=== PATIENT | male | born 1960 | race African-American/Black ===

== ENCOUNTER 2017-05-08 14:26 | Emergency (ER) | payer BC ==
[2017-05-08 15:30] LABS: #Eosinphils 0.3 thou/uL (0.0-0.7); #Lymphocytes 1.5 thou/uL (1.20-3.40); #Monocytes 0.4 thou/uL (0.11-0.59); #Neutrophils 1.1 thou/uL (1.40-6.50); %Basophils 1.1 % (0.0-1.0); %Eosinophils 9.2 % (0.0-10.0); %Lymphocytes 45.6 % (21.0-51.0); %Monocytes 12.2 % (0.0-10.0); Hematocrit 35.5 % (42.0-52.0); Mean Platelet Volume 5.5 fL (7.4-10.4); Red Blood Cell (RBC) Count 3.89 mill/uL (4.70-6.10); White Blood Cell (WBC) Count 3.3 thou/uL (4.8-10.8)
[2017-05-08 15:40] LABS: Anion Gap 11 mmol/L (10-20); BUN (Urea Nitrogen) 16 mg/dL (8.4-25.7); Calc. Creatinine Clearance 0 mL/min (70-130); Calcium 8.7 mg/dL (7.8-10.44); Carbon Dioxide 28 mmol/L (22-29); Chloride 109 mmol/L (98-107); Estimated GFR-MDRD Greater than 90
--- NOTE | 2017-05-08 15:49 | ULT ---
LEFT LOWER EXTREMITY VENOUS ULTRASOUND: COMPARISON: 06/02/16. HISTORY: Left leg edema and pain. TECHNIQUE: Multiplanar, moya scale, and color Doppler images were obtained in a left lower extremity venous ult rasound. Spectral analysis of the Doppler waveforms was performed. FINDINGS: The left common femoral vein, profunda femoral vein, superficial femoral vein, and popliteal vein ar e normal in appearance without visible thrombus. These vessels demonstrate normal compression, flow , and augmentation. The left posterior tibial vein and greater saphenous vein are also patent. IMPRESSION: No evidence of left lower extremity deep vein thrombosis. POS: [facility]
== END 2017-05-08 15:46 | disposition home or self-care (01) ==
LOC: SCSER 14:26
DX: M79.662 Pain in left lower leg (principal); I82.402 Acute embolism and thrombosis of unspecified deep veins of left lower extremity; Z79.01 Long term (current) use of anticoagulants; Z79.899 Other long term (current) drug therapy
CPT/HCPCS: 36415; 80048; 85025

== ENCOUNTER 2017-07-14 09:22 | Inpatient (IN) | payer BC ==
--- NOTE | 2017-07-14 09:47 | RAD ---
LEFT TIBIA AND FIBULA 2 VIEWS: Date: 07/14/17 HISTORY: 57-year-old male with left lower leg and ankle pain which began last week. FINDINGS: Diffuse soft tissue swelling of the lower leg and ankle. Degenerative and osteoarthrosis changes of t he knee joint and ankle joint. No acute fracture or dislocation, or other acute process. IMPRESSION: Degenerative and osteoarthrosis changes of the knee joint and ankle joint without fracture or disloca tion. POS: OFF
--- NOTE | 2017-07-14 09:49 | RAD ---
RADIOGRAPH LEFT ANKLE 3 VIEWS: Date: 07/14/17 HISTORY: 57-year-old male left ankle pain starting last week. FINDINGS: There is diffuse soft tissue edema of the ankle, circumferentially, but especially laterally. No disr uption of the ankle mortise. Moderate osteophytosis of medial malleolus, with adjacent well corticate d ossific fragment. No collapse of the talar dome. Mild bony irregularity of the medial aspect of the talus and lateral inferior aspect of the ankle mortise. No acute fracture identified. Incidentally, there are at least moderate degenerative changes at the first tarsometatarsal joint. IMPRESSION: 1. Soft tissue edema of the left ankle. 2. Moderate osteoarthrosis of the left ankle. 3. No acute fracture identified. POS: C
--- NOTE | 2017-07-14 11:56 | ULT ---
LEFT LOWER EXTREMITY VENOUS DOPPLER ULTRASOUND: 07/14/2017 HISTORY: Pain. Swelling. Edema. Assess for DVT. COMPARISON: 05/08/2017 TECHNIQUE: Multiplanar moya-scale sonographic imaging of the venous structures of the left lower extremity obtsheri esquivel with color-flow and spectral analysis. FINDINGS: The left common femoral vein, greater saphenous vein, and profunda femoral vein appear patent, as bey s the posterior tibial vein. The mid and distal femoral vein, as well as the popliteal vein, is only partially compressible and demonstrates echogenic material within the lumen, new, evidence of DVT. This is not occlusive. IMPRESSION: Nonocclusive new left femoral vein and popliteal vein deep venous thrombosis. Results called to Dr. Winston at 11:48 a.m. on 07/14/2017. CODE CR POS: [facility]
[2017-07-14 12:48] LABS: #Eosinphils 0.1 thou/uL (0.0-0.7); #Lymphocytes 1.5 thou/uL (1.20-3.40); #Monocytes 0.3 thou/uL (0.11-0.59); #Neutrophils 1.7 thou/uL (1.40-6.50); %Basophils 0.3 % (0.0-1.0); %Eosinophils 3.8 % (0.0-10.0); %Lymphocytes 41.1 % (21.0-51.0); %Monocytes 7.7 % (0.0-10.0); Hematocrit 43.4 % (42.0-52.0); Mean Platelet Volume 6.7 fL (7.4-10.4); Red Blood Cell (RBC) Count 4.46 mill/uL (4.70-6.10); White Blood Cell (WBC) Count 3.7 thou/uL (4.8-10.8)
[2017-07-14 12:55] LABS: PTT 35.7 SEC (22.9-36.1); Prothrombin Time 16.3 SEC (12.0-14.7)
[2017-07-14 13:03] LABS: ALT (SGPT) 36 U/L (8-55); AST (SGOT) 33 U/L (5-34); Alkaline Phosphatase 112 U/L (40-150); Anion Gap 7 mmol/L (10-20); BUN (Urea Nitrogen) 10 mg/dL (8.4-25.7); Bilirubin, Total 0.3 mg/dL (0.2-1.2); Calc. Creatinine Clearance 0 mL/min (70-130); Calcium 9.6 mg/dL (7.8-10.44); Carbon Dioxide 32 mmol/L (22-29); Chloride 105 mmol/L (98-107); Estimated GFR-MDRD Greater than 90; Globulin 4.1 g/dL (2.4-3.5); Protein, Total 8.5 g/dL (6.0-8.3)
[2017-07-14 13:08] LABS: Troponin I Less than 0.010 ng/mL (< 0.028)
[2017-07-14] MEDS ORDERED: Enoxaparin Sodium 100 MG/ML SYRINGE ONE (13:13)
[2017-07-14] MEDS ORDERED: Clindamycin 150 MG CAP PO SCH (13:30)
[2017-07-14] MEDS ORDERED: Iopamidol 370 76% 100 ML VIAL ONE (13:55)
--- NOTE | 2017-07-14 14:41 | CT ---
CT PULMONARY ANGIOGRAM WITH IV CONTRAST AND 3D POSTPROCESSING: Date: 07/14/17 HISTORY: Shortness of breath, left lower extremity pain. FINDINGS: There is good contrast opacification of the pulmonary arterial vasculature without filling defects to suggest pulmonary embolism. The thoracic aorta demonstrates no evidence of aneurysm or dissection. N o pleural or pericardial effusions are seen. No pneumothoraces, focal areas of consolidation, or lung masses are identified. There are degenerative changes in the spine. IMPRESSION: No CT evidence of pulmonary embolism. POS: [facility]
--- NOTE | 2017-07-14 15:18 | HP ---
DATE OF ADMISSION: 07/14/2017 PRIMARY CARE PHYSICIAN: Dr. Feliz Salgado. CHIEF COMPLAINT: Left lower extremity pain. HISTORY OF PRESENT ILLNESS: Mr. Graham is a 57-year-old -[place] male with past medical his tory of left lower extremity DVT as well as history of pulmonary embolism on chronic anticoagulation with Xarelto and hypertension, who presented to the ER with the above-mentioned complaints. History is mainly obtained by the patient himself and the case has been discussed with the admitting ER physi ariane. Electronic medical records have been reviewed in detail. Last time he was admitted here was i n 02/2017 for chest pain. At that time, he underwent a nuclear medicine stress test, which was unrem arkable and was discharged home. The patient has undergone lower extremity ultrasound last on 2016, which did not show any deep venous thrombosis in the left lower extremity. Today, he came to the emergency room with the above-mentioned complaint of about 1 week duration. He has noticed a small sore on the lateral side of his left leg and he has noticed that his leg has bee n more swollen and has started to hurt now. Upon presentation to the emergency room, he was hemodynamically stable with the blood pressure of 169 /102, temperature 98.3, heart rate of 73, respirations 15, oxygen saturation 97% on room air. He und erwent a thorough workup including an x-ray of ankle as well as tibia and fibula. Ankle x-ray shows soft tissue edema of the left ankle and osteoarthritis, otherwise no acute changes. The tibia and fi bula x-ray is negative for any fractures and only showed degenerative changes and osteoarthritis. He also underwent lower extremity ultrasound on the left leg, which actually showed a new DVT which is in the left femoral and popliteal vein and is nonocclusive in nature. Given these findings of a new DVT despite being on Xarelto, he was given one dose of Lovenox 1 mg/kg dozing, and he is now being ad mitted for further evaluation and care of this recurrent left lower extremity DVT. Upon my examination of the patient, I discussed the possibility of him missing some doses of Xarelto. The patient is a little bit evasive about this, but he does report that he has missed a day or two. Then, he also reported that the pharmacy only dispenses him about 8-9 tablets at a time and then he runs out, he has to make an appointment with his primary care physician to get the prescription refi lled. In this process, he seems to have missed several doses of Xarelto, because he does not have en ough money to make new appointments with his primary care physician every 8-10 days. At this time, he is otherwise hemodynamically stable. He does not have any chest pain, shortness of breath, orthopnea or PND. He denies any other symptoms in his right leg. He denies any fever or chi lls. He denies any abdominal pain, nausea, vomiting, diarrhea, dysuria, frequency, urgency, hematuri a. He denies any hematochezia, melena or hematemesis. He also received one dose of clindamycin for a sore on his leg on the left peterson. PAST MEDICAL HISTORY: 1. History of DVT. 2. History of pulmonary embolism, first diagnosed in 08/2014 and hypercoagulable workup is negative. 3. Chronic anticoagulation. 4. Hypertension. 5. History of seizure disorder. 6. Chronically elevated creatine kinase. PAST SURGICAL HISTORY: Hernia repair. SOCIAL HISTORY: He lives with his father and his son at home. No history of drug, tobacco or alcoho l abuse. FAMILY HISTORY: Significant for diabetes and hypertension. He denies any history of blood clots or bleeding disorders in his family. His father is actually present in the room with him. ALLERGIES: CODEINE SULFATE. CURRENT MEDICATIONS: Xarelto 20 mg daily, otherwise unknown. The patient did not bring his medicine s with him. REVIEW OF SYSTEMS: The following complete review of systems was negative, unless otherwise mentioned in the HPI or below: Constitutional: Weight loss or gain, ability to conduct usual activities. Skin: Rash, itching. Eyes: Double vision, pain. ENT/Mouth: Nose bleeding, neck stiffness, pain, tenderness. Cardiovascular: Palpitations, dyspnea on exertion, orthopnea. Respiratory: Shortness of breath, wheezing, cough, hemoptysis, fever or night sweats. Gastrointestinal: Poor appetite, abdominal pain, heartburn, nausea, vomiting, constipation, or diarr hea. Genitourinary: Urgency, frequency, dysuria, nocturia. Musculoskeletal: Pain, swelling. Neurologic/Psychiatric: Anxiety, depression. Allergy/Immunologic: Skin rash, bleeding tendency. LABORATORY DATA AND IMAGING: His labs include a CBC which shows WBCs at 3.7. Platelet 215, otherwis e unremarkable. Hemoglobin is 14.6. His PT, PTT and INR are unremarkable. Serum chemistries show b icarbonate high at 32, otherwise unremarkable. His CK-MB is 15.2 and troponin of less than 0.010. C PK is not done at this time. BNP is 18. A 12-lead EKG by my review shows sinus rhythm at 67 beats p er minute and left ventricular hypertrophy. A lower extremity ultrasound as per the HPI. A CT angio of the chest is ordered to rule out pulmonary embolism and the results are pending at this time. PHYSICAL EXAMINATION: VITAL SIGNS: Upon presentation include blood pressure 169/102, pulse of 73, respirations 15, saturat ing 97% on room air, temperature 98.3. GENERAL: In no acute distress, awake, alert, oriented x3. HEENT: Mucous membrane is moist and pink. No oropharyngeal exudate or erythema. Head is normocepha lic, atraumatic. Pupils equal, reactive to light and accommodation. Extraocular movements intact. NECK: Neck is supple without any lymphadenopathy, JVD or bruit. CHEST: Clear to auscultation without any wheezing, rales or rhonchi. CARDIOVASCULAR: Rate and rhythm is regular without any murmur, rubs or gallops. ABDOMEN: Soft, nontender, nondistended, positive bowel sounds. EXTREMITIES: Show significant edema and swelling of the left lower extremity with chronic venous sta sis changes and dry skin in the left lower leg. He is tender to palpation. There is no warmth or er ythema noticed in either of the legs. He has a small hardened area without any obvious discharge, wh ich is circular in nature and concise with his history of a sore on the left side of left leg surroun ded by severely dry skin. IMPRESSION AND PLAN: 1. Recurrent deep venous thrombosis. At this point, I do not think it is a Xarelto failure. The jose coffey seems to have not been able to take his Xarelto as needed. He needs to be on a daily dosing of Xarelto, but seems to be having problems getting it through his primary care physician's office. At this time, he will be continued on Lovenox b.i.d. dosing at 1 mg/kg and I will try to contact his [facility] care physician with regards to his prescription refills. If it seems like a financial issue, X arelto may not be the best of choices for him. At this time, he will be admitted to the hospital for further evaluation and care. If his CT angio of the thorax is negative for pulmonary embolism and h e remains hemodynamically stable, we will admit him to the medical floor, otherwise telemetry floor. 2. History of hypertension. We will resume home medications once confirmed. Add p.r.n. antihyperte nsives. 3. Left lower extremity lesion. At this time, it does not look infected. The patient seems to have chronic changes. He has received 1 dose of antibiotic in the emergency room. 4. History of seizure disorder. The patient was on phenytoin at one point of time. We will reconci le his home medications and restart as soon as possible. DISPOSITION: Mr. Graham is being admitted for recurrent DVT and rule out PE at this time. Further management will dependent on clinical course, but estimated length of stay at this time is at least 2 -3 midnights.
[2017-07-14] MEDS ORDERED: HYDROcodone/Acetaminophen 5/325 mg Tablet ONE (16:38)
[2017-07-14] MEDS ORDERED: Senokot 8.6 MG TAB PO PRN ×2 (17:33)
[2017-07-14] MEDS ORDERED: Lorazepam 1 MG TAB PO PRN (17:33)
[2017-07-14] MEDS ORDERED: Loratadine 10 MG TAB PO PRN (17:33)
[2017-07-14] MEDS ORDERED: Mag-Al 1200 mg/1200 mg/30 ML UDCUP PO PRN (17:33)
[2017-07-14] MEDS ORDERED: Calcium Carbonate 500 MG ChewTAB PO PRN (17:33)
[2017-07-14] MEDS ORDERED: cloNIDine 0.1 MG TAB PO PRN (17:33)
[2017-07-14] MEDS ORDERED: Bisacodyl 5 MG TAB PO PRN ×2 (17:33)
[2017-07-14] MEDS ORDERED: Diabetic Tussin 200 MG/10 ML UDCUP PO PRN (17:33)
[2017-07-14] MEDS ORDERED: hydrALAZINE 20 MG/ML VIAL SLOW IVP PRN (17:33)
[2017-07-14] MEDS ORDERED: Benzonatate 100 MG CAP PO PRN (17:33)
[2017-07-14] MEDS ORDERED: Acetaminophen 325 MG TAB PO PRN (17:33)
[2017-07-14] MEDS ORDERED: Ondansetron HCl/PF 4 MG/2 ML Vial IVP PRN (17:33)
[2017-07-14] MEDS ORDERED: Nitroglycerin 0.4 MG TAB (25 Tab Bottle) SL PRN (17:33)
[2017-07-14 17:53] VITALS: BMI 31.1
[2017-07-14] MEDS: Enoxaparin Sodium 100 MG/ML SYRINGE SC SCH (20:52)
[2017-07-15 06:18] LABS: #Basophils 0.1 thou/uL (0.0-0.2); #Eosinphils 0.2 thou/uL (0.0-0.7); #Lymphocytes 1.8 thou/uL (1.20-3.40); #Monocytes 0.4 thou/uL (0.11-0.59); #Neutrophils 1.3 thou/uL (1.40-6.50); %Basophils 1.4 % (0.0-1.0); %Eosinophils 5.3 % (0.0-10.0); %Lymphocytes 47.4 % (21.0-51.0); %Monocytes 9.5 % (0.0-10.0); Hematocrit 40.5 % (42.0-52.0); Mean Platelet Volume 7.1 fL (7.4-10.4); Red Blood Cell (RBC) Count 4.17 mill/uL (4.70-6.10); White Blood Cell (WBC) Count 3.7 thou/uL (4.8-10.8)
[2017-07-15 06:32] LABS: Anion Gap 11 mmol/L (10-20); BUN (Urea Nitrogen) 11 mg/dL (8.4-25.7); Calc. Creatinine Clearance 150 mL/min (70-130); Calcium 9.1 mg/dL (7.8-10.44); Carbon Dioxide 30 mmol/L (22-29); Chloride 104 mmol/L (98-107); Estimated GFR-MDRD Greater than 90
[2017-07-15] MEDS: Enoxaparin Sodium 100 MG/ML SYRINGE SC SCH (08:05)
[2017-07-15] MEDS ORDERED: FLU VACC QS2017-18 36 mo. & older 0.5 ML SYRINGE IM ONE (09:00)
[2017-07-15] MEDS ORDERED: Clindamycin 150 MG CAP PO SCH (10:00)
[2017-07-15] MEDS ORDERED: Cholestyramine/Aspartame 4 gm Packet PO SCH (10:00)
[2017-07-15 11:35] VITALS: BP 138/95; TEMP 97.5
[2017-07-15] MEDS ORDERED: Rivaroxaban 10 MG TAB PO SCH (18:00)
[2017-07-15] MEDS ORDERED: Metoprolol Tartrate 25 MG TAB PO SCH (21:00)
--- NOTE | 2017-07-16 04:27 | DIS ---
DATE OF ADMISSION: 07/14/2017 DATE OF DISCHARGE: 07/15/2017 CONDITION AT THE TIME OF DISCHARGE: Stable and improved. DISCHARGE DIAGNOSES: 1. Recurrent left lower extremity deep venous thrombosis in the left femoral and left popliteal vein . 2. Medication noncompliance due to financial and social reasons. 3. History of deep venous thrombosis and pulmonary embolism, supposed to be on long-term anticoagula tion. 4. Hypertension. 5. History of seizure disorder. 6. Chronically elevated creatine kinase. 7. Superficial skin infection in the left lower extremity. DISCHARGE MEDICATIONS: Xarelto 20 mg daily, clindamycin 300 mg every 8 hours for 5 more days, Floras tor 250 mg p.o. daily for 7 days, Dilantin 200 mg p.o. b.i.d., metoprolol tartrate 25 mg p.o. q.12 ho urs, and Questran 4 grams q.i.d. PRIMARY CARE PHYSICIAN: Feliz Salgado M.D. CONSULTATIONS IN THE HOSPITAL: Include none. PROCEDURES DONE IN THE HOSPITAL: 1. Include ankle x-ray, which is negative for any fracture shows soft tissue edema of the left ankle . 2. X-ray of the left tibia and fibula, which shows osteoarthritis without any fractures. 3. Lower extremity Doppler ultrasound of the left leg, which shows new DVT in the left popliteal and femoral vein nonocclusive. 4. CT angio of the thorax, which is negative for any pulmonary embolism. ADMISSION HISTORY: Mr. 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 The patient has presented multiple times in the past years when he has stoppe d his Xarelto for one or the other reasons developing new DVTs. At this time, he gave the history th at he is not able to procure the Xarelto for more than 8 or 9 days from his primary care physician's office. He reported that he has to make a new appointment every 8 or 9 days to get a refill on his m edications, and he cannot afford followup appointment with his primary care physician. His ultrasound in the ER was consistent with a new DVT, which was not there in April. CT angio w as negative for PE. He was hemodynamically stable and was admitted to medical floor to sort this iss ue out. He was started on Lovenox 1 mg/kg dosing by the emergency room. HOSPITAL COURSE: The patient was quickly transitioned back to his Xarelto as it become apparent that the patient is not a failure of the medication, but rather due to noncompliance, he has recurrent DV T. Otherwise, he remained hemodynamically stable. I personally tried to call his primary care physician's office multiple times, but I did not receive a call back despite leaving messages. At this time, I am choosing to restart him on Xarelto and I am giving him prescriptions with instructions to close followup with his primary care physician's offic e. At this time, he remains a high risk for re-admission if he does not have a good followup with on going prescriptions for Xarelto; which he needs for the rest of his life. I have discussed this with him and he assures me that he will make a followup appointment rather quickly. He was found to have a small sore, which was not open in the left leg on the lateral side. It was tr eated with oral clindamycin, which he will finish as an outpatient. There is no oozing, erythema, sw elling, or tenderness around the lesion. Likely a folliculitis type lesion. He was seen and examined prior to discharge. PHYSICAL EXAMINATION: Include, VITAL SIGNS: Temperature 97.5, pulse is 69, respirations 16, saturating 97% on room air, blood press ure 138/95. GENERAL: No acute distress. Awake, alert, and oriented x3. CHEST: Clear to auscultation without any wheezing, rales, or rhonchi. HEART: Rate and rhythm is regular without any murmur, rubs, or gallops. ABDOMEN: Soft, nontender, and nondistended. Positive bowel sounds. LABORATORY DATA: CBC showed WBCs at 3.7, hemoglobin 13.6, platelet count 195. Serum chemistries are unremarkable. Creatine kinase is 1957. Troponin is less than 0.010. BNP is normal at 18. Liver e nzymes are unremarkable. Kidney function is within normal limits.
--- NOTE | 2017-08-04 13:53 | EKG ---
Test Reason : Blood Pressure : / mmHG Vent. Rate : 067 BPM Atrial Rate : 067 BPM P-R Int : 152 ms QRS Dur : 090 ms QT Int : 372 ms P-R-T Axes : 040 -11 000 degrees QTc Int : 393 ms Normal sinus rhythm Moderate voltage criteria for LVH, may be normal variant Borderline ECG Confirmed by MATEO BARFIELD, KILO ([id number]), newspaper managing editor KARLIE JAMA ([id number]) on 08/04/2017 1:52:34 PM Referred By: Confirmed By:KILO GALINDO MD
== END 2017-07-15 14:23 | disposition home or self-care (01) | DRG 301 ==
LOC: ERS 09:22 → T4-B 17:30
PROVIDERS: ADMIT Internal Medicine; ATTEND Internal Medicine
DX: I82.412 Acute embolism and thrombosis of left femoral vein (principal); I82.432 Acute embolism and thrombosis of left popliteal vein; I10 Essential (primary) hypertension; Z91.14 Patient's other noncompliance with medication regimen; L08.9 Local infection of the skin and subcutaneous tissue, unspecified; G40.909 Epilepsy, unspecified, not intractable, without status epilepticus; Z86.711 Personal history of pulmonary embolism; Z79.01 Long term (current) use of anticoagulants
CPT/HCPCS: 36415; 71275; 80048; 80053; 82553; 83880; 84484; 85025; 85610; 85730; 93005; 96360; 96361; 96372; J1650

== ENCOUNTER 2017-10-16 13:07 | Emergency (ER) | payer BC ==
[2017-10-16] MEDS ORDERED: cefTRIAXone\\ROCEPHIN 500 MG VIAL ONE (15:03)
[2017-10-16] MEDS ORDERED: Lidocaine 1% (PF) 30 ML VIAL ONE (15:03)
[2017-10-16 15:13] LABS: Mean Corpuscular HGB CONC 34.4 g/dL (32.0-36.0); Mean Corpuscular Hemoglobin 32.6 pg (27.0-31.0); Mean Corpuscular Volume 94.7 fl (80.0-94.0); Mean Platelet Volume 6.3 fL (7.4-10.4); Platelet Count 185 thou/uL (130-400); RBC Distribution Width 12.2 % (11.5-14.5); Red Blood Cell (RBC) Count 3.99 mill/uL (4.70-6.10); White Blood Cell (WBC) Count 3.3 thou/uL (4.8-10.8)
--- NOTE | 2017-10-16 15:13 | ULT ---
VENOUS DUPLEX SONOGRAM IN THE LEFT LOWER EXTREMITY: HISTORY: Left leg pain and edema. FINDINGS: The left common femoral vein and greater saphenous junction were evaluated along with the femoral, de ep femoral, popliteal, and posterior tibial veins. There is good color and spectral Doppler flow, co mpression, and augmentation. IMPRESSION: No sonographic evidence of deep vein thrombosis within the left lower extremity. POS: I[facility]
[2017-10-16 15:18] LABS: INR-International Normal Ratio 1.4; Prothrombin Time 17.4 SEC (12.0-14.7)
[2017-10-16 15:34] LABS: ALT (SGPT) 34 U/L (8-55); AST (SGOT) 40 U/L (5-34); Albumin 3.9 g/dL (3.5-5.0); Alkaline Phosphatase 106 U/L (40-150); Anion Gap 10 mmol/L (10-20); BUN (Urea Nitrogen) 13 mg/dL (8.4-25.7); Bilirubin, Total 0.2 mg/dL (0.2-1.2); Calc. Creatinine Clearance 0 mL/min (70-130); Carbon Dioxide 28 mmol/L (22-29); Chloride 107 mmol/L (98-107); Estimated GFR-MDRD Greater than 90; Globulin 3.3 g/dL (2.4-3.5); Glucose 70 mg/dL (70-105); Potassium 3.9 mmol/L (3.5-5.1); Protein, Total 7.2 g/dL (6.0-8.3); Sodium 141 mmol/L (136-145)
[2017-10-16 15:39] LABS: Eosinophils 4 % (0-10); Lymphocytes 30 % (21-51); MDiff Complete? YES; Monocytes 12 % (0-10); Neutrophil 35 % (42-75); PLT Morphology Comment Appears Adequate; RBC Morphology Normal; Reactive Lymphocytes 18 % (0-10)
== END 2017-10-16 15:35 | disposition home or self-care (01) ==
LOC: ERS 13:07
DX: S81.802D Unspecified open wound, left lower leg, subsequent encounter (principal); E78.5 Hyperlipidemia, unspecified; I10 Essential (primary) hypertension; G40.909 Epilepsy, unspecified, not intractable, without status epilepticus; Z79.01 Long term (current) use of anticoagulants; Z79.899 Other long term (current) drug therapy; X58.XXXD Exposure to other specified factors, subsequent encounter
CPT/HCPCS: 36415; 80053; 85025; 85610; 85730; 96372; J0696; J2001

== ENCOUNTER 2017-10-29 15:20 | Emergency (ER) | payer BC ==
[2017-10-29 18:27] LABS: #Eosinphils 0.2 thou/uL (0.0-0.7); #Lymphocytes 1.4 thou/uL (1.20-3.40); #Monocytes 0.3 thou/uL (0.11-0.59); #Neutrophils 1.2 thou/uL (1.40-6.50); %Basophils 1.3 % (0.0-1.0); %Eosinophils 5.4 % (0.0-10.0); %Lymphocytes 45.9 % (21.0-51.0); %Monocytes 9.4 % (0.0-10.0); %Neutrophils 38.1 % (42.0-75.0); Hemoglobin 13.5 g/dL (14.0-18.0); Mean Corpuscular HGB CONC 33.8 g/dL (32.0-36.0); Mean Corpuscular Volume 94.6 fl (80.0-94.0); Mean Platelet Volume 6.3 fL (7.4-10.4); Platelet Count 176 thou/uL (130-400); RBC Distribution Width 12.5 % (11.5-14.5); Red Blood Cell (RBC) Count 4.22 mill/uL (4.70-6.10); White Blood Cell (WBC) Count 3.1 thou/uL (4.8-10.8)
[2017-10-29 18:34] LABS: INR-International Normal Ratio 1.3; PTT 33.9 SEC (22.9-36.1); Prothrombin Time 16.3 SEC (12.0-14.7)
[2017-10-29 19:05] LABS: ALT (SGPT) 26 U/L (8-55); AST (SGOT) 34 U/L (5-34); Albumin 3.9 g/dL (3.5-5.0); Alkaline Phosphatase 98 U/L (40-150); Anion Gap 13 mmol/L (10-20); BUN (Urea Nitrogen) 13 mg/dL (8.4-25.7); Bilirubin, Total 0.3 mg/dL (0.2-1.2); Calc. Creatinine Clearance 0 mL/min (70-130); Calcium 8.9 mg/dL (7.8-10.44); Carbon Dioxide 23 mmol/L (22-29); Chloride 107 mmol/L (98-107); Estimated GFR-MDRD Greater than 90; Globulin 3.5 g/dL (2.4-3.5); Glucose 84 mg/dL (70-105); Potassium 3.8 mmol/L (3.5-5.1); Protein, Total 7.4 g/dL (6.0-8.3); Sodium 139 mmol/L (136-145)
[2017-10-29] MEDS ORDERED: HYDROcodone/Acetaminophen 5/325 mg Tablet ONE (19:36)
--- NOTE | 2017-10-29 20:17 | ULT ---
ULTRASOUND WITH DOPPLER DUPLEX VENOUS LOWER EXTREMITY LEFT: 10/29/17 HISTORY: 57-year-old male with left lower extremity pain and edema. TECHNIQUE: Color flow Doppler, spectral waveform analysis of pulsed Doppler, and moya-scale imaging with arleth deepak and augmentation, were used to evaluate the left common femoral, femoral, popliteal, posterior t ibial, and superficial femoral, veins; and the proximal portions of the profunda femoral and greater saphenous, veins. FINDINGS: There is normal compressibility, demonstration of blood flow by color Doppler and pulsed Doppler, and response to augmentation, in all interrogated veins. IMPRESSION: Negative. No deep vein thrombosis in the left lower extremity. jn[] POS: IAM
== END 2017-10-29 21:04 | disposition home or self-care (01) ==
LOC: ERS 15:20
DX: M79.89 Other specified soft tissue disorders (principal); E78.5 Hyperlipidemia, unspecified; I10 Essential (primary) hypertension; G40.909 Epilepsy, unspecified, not intractable, without status epilepticus; Z79.01 Long term (current) use of anticoagulants; Z79.899 Other long term (current) drug therapy
CPT/HCPCS: 36415; 80053; 85025; 85610; 85730

== ENCOUNTER 2018-06-20 12:11 | Observation (INO) | payer BC, SELFPAY ==
[2018-06-20] MEDS ORDERED: hydrALAZINE 20 MG/ML VIAL ONE ×2 (13:03→15:50)
[2018-06-20 13:10] LABS: #Basophils 0.1 thou/uL (0.0-0.2); #Eosinphils 0.1 thou/uL (0.0-0.7); #Lymphocytes 1.5 thou/uL (1.20-3.40); #Monocytes 0.3 thou/uL (0.11-0.59); #Neutrophils 1.6 thou/uL (1.40-6.50); %Basophils 1.4 % (0.0-1.0); %Eosinophils 3.3 % (0.0-10.0); %Lymphocytes 42.1 % (21.0-51.0); %Monocytes 9.5 % (0.0-10.0); %Neutrophils 43.6 % (42.0-75.0); Hemoglobin 14.1 g/dL (14.0-18.0); Mean Corpuscular HGB CONC 34.5 g/dL (32.0-36.0); Mean Corpuscular Hemoglobin 32.8 pg (27.0-31.0); Mean Corpuscular Volume 95.2 fL (78.0-98.0); Platelet Count 176 thou/uL (130-400); RBC Distribution Width 12.6 % (11.5-14.5); White Blood Cell (WBC) Count 3.6 thou/uL (4.8-10.8)
[2018-06-20 13:34] LABS: Troponin I Less than 0.010 ng/mL (< 0.028)
[2018-06-20 13:39] LABS: CKMB 6.8 ng/mL (0-6.6)
--- NOTE | 2018-06-20 14:14 | RAD ---
CHEST 1 VIEW: Date: 06/20/18 HISTORY: Dyspnea. COMPARISON: None. FINDINGS: Lungs are clear. No pneumothorax or effusion. Cardiac silhouette and mediastinal contours within norm al limits. IMPRESSION: No acute intrathoracic abnormality. POS: [facility]
[2018-06-20 14:15] LABS: ALT (SGPT) 24 U/L (8-55); AST (SGOT) 24 U/L (5-34); Albumin 4.1 g/dL (3.5-5.0); Alkaline Phosphatase 99 U/L (40-150); Anion Gap 13 mmol/L (10-20); BUN (Urea Nitrogen) 13 mg/dL (8.4-25.7); Bilirubin, Total 0.2 mg/dL (0.2-1.2); Calc. Creatinine Clearance 0 mL/min (70-130); Carbon Dioxide 22 mmol/L (22-29); Chloride 109 mmol/L (98-107); Estimated GFR-MDRD Greater than 90; Globulin 3.5 g/dL (2.4-3.5); Glucose 95 mg/dL (70-105); Protein, Total 7.6 g/dL (6.0-8.3); Sodium 140 mmol/L (136-145)
--- NOTE | 2018-06-20 14:28 | ULT ---
LEFT LOWER EXTREMITY VENOUS DOPPLER: Date: 06/20/18 HISTORY: Lower extremity edema. COMPARISON: Doppler 10/29/17. FINDINGS: Real-time Romero scale and color Doppler with spectral analysis of the left lower extremity venous sys tem was performed. The common femoral, femoral, proximal portions of greater saphenous and deep femor al veins, as well as the popliteal and posterior tibial veins were interrogated. Mild lower extremity edema. No deep vein thrombosis. IMPRESSION: No deep vein thrombosis. POS: [facility]
--- NOTE | 2018-06-20 15:37 | CT ---
CT ANGIOGRAM OF THE CHEST 06/20/18 HISTORY: Shortness of breath. COMPARISON: CT angiogram chest 07/14/17. FINDINGS: CT angiogram chest performed after the intravenous administration of contrast. 3D rendering provide d. No proximal segmental pulmonary arterial filling defect. Pulmonary trunk size is normal. IMPRESSION: No pericardial effusion. No mediastinal adenopathy. Thyroid is unremarkable. Hypodensity superior pole right kidney incompletely evaluated on this examination although measures a fluid attenuation suggestive of a cyst. Sternum and manubrium are intact. Normal appearance of the aorta. IMPRESSION: 1. No proximal segmental pulmonary arterial filling defect. 2. No acute inflammatory process within the chest. POS: [facility]
[2018-06-20 16:46] LABS: Troponin I 0.012 ng/mL (< 0.028)
[2018-06-20] MEDS ORDERED: ISOVUE-370 76%-LOCM 1 ML ONE (16:50)
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
[2018-06-20] MEDS ORDERED: Labetalol HCl 100 MG/20 ML VIAL SLOW IVP PRN (18:14)
[2018-06-20] MEDS ORDERED: Lorazepam 2 MG/ML VIAL SLOW IVP PRN (18:14)
[2018-06-20] MEDS ORDERED: Ondansetron ODT 4 MG TAB PO PRN (18:14)
[2018-06-20] MEDS ORDERED: hydrALAZINE 20 MG/ML VIAL SLOW IVP PRN (18:14)
[2018-06-20] MEDS ORDERED: Acetaminophen 325 MG TAB PO PRN (18:14)
[2018-06-20] MEDS ORDERED: Ondansetron PF 4 MG/2 ML Vial IVP PRN (18:14)
[2018-06-20 18:24] VITALS: BMI 37.5
[2018-06-20 20:27] LABS: Troponin I Less than 0.010 ng/mL (< 0.028)
[2018-06-20] MEDS: Nitroglycerin 2% Ointment 1 INCH/1 GM Packet TOP SCH ×2 (20:36→20:49)
[2018-06-21 03:59] LABS: #Eosinphils 0.1 thou/uL (0.0-0.7); #Lymphocytes 1.3 thou/uL (1.20-3.40); #Monocytes 0.4 thou/uL (0.11-0.59); #Neutrophils 2.1 thou/uL (1.40-6.50); %Basophils 0.9 % (0.0-1.0); %Eosinophils 2.1 % (0.0-10.0); %Lymphocytes 33.9 % (21.0-51.0); %Monocytes 9.9 % (0.0-10.0); %Neutrophils 53.1 % (42.0-75.0); Hemoglobin 13.1 g/dL (14.0-18.0); Mean Corpuscular HGB CONC 34.2 g/dL (32.0-36.0); Mean Corpuscular Hemoglobin 32.4 pg (27.0-31.0); Mean Corpuscular Volume 94.7 fL (78.0-98.0); Mean Platelet Volume 6.9 fL (7.4-10.4); Platelet Count 189 thou/uL (130-400); RBC Distribution Width 12.2 % (11.5-14.5); Red Blood Cell (RBC) Count 4.04 mill/uL (4.70-6.10); White Blood Cell (WBC) Count 3.9 thou/uL (4.8-10.8)
[2018-06-21 04:11] LABS: Anion Gap 11 mmol/L (10-20); BUN (Urea Nitrogen) 13 mg/dL (8.4-25.7); Calc. Creatinine Clearance 179 mL/min (70-130); Calcium 8.7 mg/dL (7.8-10.44); Carbon Dioxide 24 mmol/L (22-29); Cardiac Risk 4.6 (Less than 4.5); Chloride 107 mmol/L (98-107); Cholesterol 151 mg/dl (< 200 Desired); Estimated GFR-MDRD Greater than 90; Glucose 103 mg/dL (70-105); HDL Cholesterol 33 mg/dL (>60 Neg Risk); LDL Cholesterol, Calculated 80 mg/dL; Potassium 3.9 mmol/L (3.5-5.1); Sodium 138 mmol/L (136-145); Triglycerides 189 mg/dL (Less than 150)
[2018-06-21] MEDS ORDERED: Enoxaparin Sodium 40 MG/0.4 ML SYRINGE SC SCH (09:00)
[2018-06-21] MEDS ORDERED: Amlodipine 5 MG TAB PO SCH (09:00)
[2018-06-21] MEDS ORDERED: Metoprolol Tartrate 50 MG TAB PO SCH ×2 (09:45→21:00)
--- NOTE | 2018-06-21 13:57 | NM ---
NUCLEAR MEDICINE CARDIAC STRESS TEST WITH EJECTION FRACTION: HISTORY: Chest pain. COMPARISON: Exam from 2017. TECHNIQUE: Stress and rest was performed after the intravenous administration of 32 and 10 mCi technetium-99m se stamibi, respectively. FINDINGS: Normal left ventricular uptake of radiotracer. Normal wall motion. No scar or ischemia. Ejection fraction calculated at 67%. IMPRESSION: Normal exam. POS: IAM
--- NOTE | 2018-06-21 14:46 | PDOC.PN ---
- Subjective Encounter Start Date: 06/21/18 Encounter Start Time: 14:44 Mr. Graham was seen today in follow-up of shortness of breath. He says today he feels fine. He is no longer short of breath. He believes he may have taken the wrong medication yesterday, that was not hs blood pressure medication. - Objective Resuscitation Status: Resuscitation Status FULL:Full Resuscitation MAR Reviewed: Yes Vital Signs & Weight: Vital Signs (12 hours) Temp Pulse Resp BP BP Pulse Ox 06/21/18 08:11 79 141/88 H 06/21/18 07:42 98.6 F 79 20 141/88 H 95 06/21/18 04:00 98.5 F 81 18 157/75 H 98 Weight Weight 276 lb 8 oz I&O: 06/20/18 06/21/18 06/22/18 06:59 06:59 06:59 Intake Total 490 240 Output Total 400 100 Balance 90 140 Result Diagrams: 06/21/18 03:42 06/21/18 03:42 Phys Exam - Physical Examination HEENT: PERRLA Respiratory: no wheezing, no rales, no rhonchi, clear to auscultation bilateral Cardiovascular: RRR, no significant murmur, no rub Gastrointestinal: soft, non-tender, no distention, positive bowel sounds Musculoskeletal: no edema Dx/Plan (1) Hypertensive urgency Code(s): I16.0 - HYPERTENSIVE URGENCY Status: Acute (2) Obesity with body mass index of 30.0-39.9 Code(s): E66.9 - OBESITY, UNSPECIFIED Status: Chronic (3) Seizure disorder Code(s): G40.909 - EPILEPSY, UNSP, NOT INTRACTABLE, WITHOUT STATUS EPILEPTICUS Status: Chronic - Plan * Hypertensive Urgency- resolved- Possibly due to medication mix-up. His blood pressure is stable, on his usual home medications * Stress test was negative, And CTA of chest was negative yesterday * Stable for discharge home.
[2018-06-21] MEDS: Nitroglycerin 2% Ointment 1 INCH/1 GM Packet TOP SCH (15:19)
[2018-06-21 15:42] VITALS: BP 174/99; TEMP 98.2
--- NOTE | 2018-06-21 20:03 | DIS ---
DATE OF ADMISSION: 06/20/2018 DATE OF DISCHARGE: 06/21/2018 PRIMARY CARE PHYSICIAN: Randolph Patel M.D. DISCHARGE DISPOSITION: Home. PRIMARY DISCHARGE DIAGNOSES: 1. Hypertensive urgency. 2. Hypertension. 3. Obesity with body mass index of 37.5. 4. Seizure disorder. PROCEDURES DONE DURING ADMISSION: The patient had a CT angiogram of the chest which was negative for pulmonary embolism. He also had a venous ultrasound of the left lower extremity which was negative for DVT and had a nuclear stress test which was negative for any reversible ischemia. The patient al so had an echocardiogram, which was pending at the time of discharge. CODE STATUS: FULL CODE. ALLERGIES: CODEINE and SULFA. DISCHARGE MEDICATIONS: Include Dilantin 400 mg twice a day, metoprolol 50 mg twice daily and amlodip ine 5 mg a day. HOSPITAL COURSE: Mr. Graham is a pleasant 58-year-old gentleman who presented to the emergency room complaining of shortness of breath. He said he had been short of breath for at least a week prior t o admission. He says that it was fairly constant, but was worse with exertion. He did not have any real symptoms of PND or orthopnea. He also has a history of previous DVT, but has not been on antico agulation as he says he had been taken off of this about a year ago. He was evaluated in the ER, primarily due to concerns for possible thromboembolic event. However, CT A of the chest was negative as well as the lower extremity venous Doppler. The patient actually look ed quite comfortable and his O2 sats were in the 90s on room air, but he insisted that he was still s hort of breath even though he was talking in complete sentences and looks completely without any dist ress. Due to this reason, we placed him in observation just to ensure that the dyspnea was not an an ginal equivalent. The following day, the patient says he was completely better. It is possible that the dyspnea could be related to hypertensive urgency as his blood pressure was extremely high when bertrand polanco was initially seen in the ER. He says he may have mixed up his medications and took a different me dicine instead of a blood pressure medicine in the morning. I suspect some of it could be anxiety re lated due to his fear of pulmonary embolism. Once this was ruled out, I believe the patient was much more relaxed. The stress test was negative. The echo was pending at the time of discharge and sondra ent will be discharged home to have close outpatient followup with his primary care physician.
== END 2018-06-21 16:45 | disposition home or self-care (01) ==
LOC: ERS 12:11 → 2SW 17:54
PROVIDERS: ADMIT Internal Medicine; ATTEND Internal Medicine
DX: I16.0 Hypertensive urgency (principal); I10 Essential (primary) hypertension; G40.909 Epilepsy, unspecified, not intractable, without status epilepticus; E66.9 Obesity, unspecified; Z68.37 Body mass index [BMI] 37.0-37.9, adult; Z86.718 Personal history of other venous thrombosis and embolism; Z79.899 Other long term (current) drug therapy; Z77.22 Contact with and (suspected) exposure to environmental tobacco smoke (acute) (chronic); Z88.2 Allergy status to sulfonamides; Z88.5 Allergy status to narcotic agent
CPT/HCPCS: 36415; 71045; 71275; 78452; 80048; 80053; 80061; 80185; 82553; 83880; 84484; 85025; 85379; 90471; 90686; 93005; 93017; 93306; 94760; 96372; 96374; 96375; 96376; A9500; G0008; G0378; J0360; J1650; J2405

== ENCOUNTER 2023-03-03 17:14 | Observation (INO) | payer OTHER, SELFPAY ==
[2023-03-03 21:02] VITALS: BMI 37.8
[2023-03-03] MEDS ORDERED: HYDROcodone/Acetaminophen 7.5/325 mg Tablet PO PRN (21:55)
[2023-03-03] MEDS ORDERED: hydrOXYzine 25 MG TAB PO PRN (21:57)
[2023-03-03] MEDS ORDERED: HumaLOG 300 UNITS/3 ML VIAL SC PRN ×2 (21:58)
[2023-03-03] MEDS ORDERED: Glucagon 1 MG/ML KIT IM PRN (21:58)
[2023-03-03] MEDS ORDERED: Dextrose 5% in Water 1,000 ML IV PRN (21:58)
[2023-03-03] MEDS ORDERED: Dextrose 50% Abboject 50 ML SYRINGE SLOW IVP PRN (21:58)
[2023-03-03] MEDS ORDERED: Enoxaparin 120 MG/0.8 ML SYRINGE SC SCH (22:00)
[2023-03-03] MEDS ORDERED: Phenytoin Extended Release 100 MG CAP PO SCH (22:48)
[2023-03-03 23:03] LABS: Troponin I Less than 0.010 ng/mL (< 0.028)
[2023-03-04 02:31] LABS: Troponin I Less than 0.010 ng/mL (< 0.028)
[2023-03-04 05:50] LABS: #Eosinphils 0.3 thou/uL (0.0-0.7); #Monocytes 0.4 thou/uL (0.11-0.59); %Basophils 0.6 % (0.0-1.0); %Eosinophils 7.8 % (0.0-10.0); %Neutrophils 29.3 % (42.0-75.0); Hemoglobin 12.1 g/dL (14.0-18.0); Mean Corpuscular HGB CONC 35.2 g/dL (32.0-36.0); Mean Corpuscular Hemoglobin 32.4 pg (27.0-31.0); Mean Corpuscular Volume 92.2 fl (78.0-98.0); Mean Platelet Volume 9.8 fL (7.4-10.4); Platelet Count 178 10x3/uL (130-400); RBC Distribution Width 13.1 % (11.5-14.5); Red Blood Cell (RBC) Count 3.73 mill/uL (4.70-6.10); White Blood Cell (WBC) Count 3.3 10x3/uL (4.8-10.8)
[2023-03-04 06:14] LABS: Anion Gap 11 mmol/L (10-20); BUN (Urea Nitrogen) 27 mg/dL (8.4-25.7); Calc. Creatinine Clearance 125 mL/min (70-130); Calcium 8.8 mg/dL (7.8-10.44); Carbon Dioxide 23 mmol/L (23-31); Cardiac Risk 3.7 (Less than 4.5); Chloride 109 mmol/L (98-107); Cholesterol 116 mg/dl (< 200 Desired); Estimated GFR 77; Glucose 97 mg/dL (80-115); HDL Cholesterol 31 mg/dL (>60 Neg Risk); LDL Cholesterol, Calculated 54 mg/dL; Potassium 4.4 mmol/L (3.5-5.1); Sodium 139 mmol/L (136-145); Triglycerides 154 mg/dL (Less than 150)
[2023-03-04 06:15] LABS: Dilantin 14.5 ug/mL (10.0-20.0)
[2023-03-04] MEDS ORDERED: metFORMIN 500 MG TAB PO SCH (08:00)
[2023-03-04] MEDS ORDERED: Acetaminophen 325 MG TAB PO PRN (08:13)
[2023-03-04] MEDS ORDERED: Phenytoin Extended Release 100 MG CAP PO SCH ×2 (09:00→21:00)
[2023-03-04] MEDS ORDERED: CeleCOXIB 100 MG CAP PO SCH (09:00)
[2023-03-04] MEDS ORDERED: Hydrochlorothiazide 25 MG TAB PO SCH (09:00)
[2023-03-04] MEDS ORDERED: Atorvastatin Calcium 20 MG TAB PO SCH (09:00)
[2023-03-04] MEDS ORDERED: Loratadine 10 MG TAB PO SCH (09:00)
[2023-03-04] MEDS ORDERED: Amlodipine 10 MG TAB PO SCH (09:00)
[2023-03-04] MEDS ORDERED: Clopidogrel Bisulfate 75 MG TAB PO SCH (09:00)
[2023-03-04] MEDS ORDERED: Enoxaparin 120 MG/0.8 ML SYRINGE SC SCH (09:00)
[2023-03-04] MEDS ORDERED: Lisinopril 10 MG TAB PO SCH (09:00)
[2023-03-04 12:31] VITALS: BP 110/76; TEMP 98.2
== END 2023-03-04 13:55 | disposition home or self-care (01) ==
LOC: 2SW 17:14
PROVIDERS: ADMIT Internal Medicine; ATTEND Internal Medicine
DX: I82.411 Acute embolism and thrombosis of right femoral vein (principal); D64.9 Anemia, unspecified; G40.909 Epilepsy, unspecified, not intractable, without status epilepticus; I08.1 Rheumatic disorders of both mitral and tricuspid valves; Z88.2 Allergy status to sulfonamides; Z88.6 Allergy status to analgesic agent; Z79.899 Other long term (current) drug therapy; Z79.84 Long term (current) use of oral hypoglycemic drugs; Z79.02 Long term (current) use of antithrombotics/antiplatelets; Z79.01 Long term (current) use of anticoagulants
CPT/HCPCS: 36415; 36416; 80048; 80061; 80185; 84484; 85025; 93005; 93010; 93306; 96372; G0378; G0379; J1650

== ENCOUNTER 2023-03-08 20:11 | Observation (INO) | payer OTHER ==
[2023-03-08] MEDS ORDERED: Morphine 4 MG/ML VIAL ONE (21:21)
[2023-03-08] MEDS ORDERED: Aspirin Chewable 81 MG TAB ONE (21:21)
[2023-03-08 21:32] LABS: #Eosinphils 0.3 thou/uL (0.0-0.7); #Monocytes 0.5 thou/uL (0.11-0.59); #Neutrophils 2.2 thou/uL (1.40-6.50); %Basophils 0.4 % (0.0-1.0); %Eosinophils 6.6 % (0.0-10.0); %Lymphocytes 39.2 % (21.0-51.0); %Monocytes 9.8 % (0.0-10.0); %Neutrophils 43.8 % (42.0-75.0); Hemoglobin 12.1 g/dL (14.0-18.0); Mean Corpuscular HGB CONC 34.1 g/dL (32.0-36.0); Mean Corpuscular Hemoglobin 32.2 pg (27.0-31.0); Mean Corpuscular Volume 94.4 fl (78.0-98.0); Mean Platelet Volume 9.9 fL (7.4-10.4); Platelet Count 188 10x3/uL (130-400); RBC Distribution Width 13.2 % (11.5-14.5); Red Blood Cell (RBC) Count 3.76 mill/uL (4.70-6.10)
[2023-03-08 21:57] LABS: ALT (SGPT) 34 U/L (8-55); AST (SGOT) 33 U/L (5-34); Albumin 4.1 g/dL (3.4-4.8); Alkaline Phosphatase 77 U/L (40-110); Anion Gap 13 mmol/L (10-20); BUN (Urea Nitrogen) 23 mg/dL (8.4-25.7); Bilirubin, Total Less than 0.2 mg/dL (0.2-1.2); Calc. Creatinine Clearance 0 mL/min (70-130); Calcium 8.9 mg/dL (7.8-10.44); Carbon Dioxide 24 mmol/L (23-31); Chloride 108 mmol/L (98-107); Estimated GFR 65; Globulin 3.3 g/dL (2.4-3.5); Glucose 97 mg/dL (80-115); Lipase 63 U/L (8-78); Protein, Total 7.4 g/dL (5.8-8.1); Sodium 141 mmol/L (136-145)
[2023-03-08 23:19] LABS: SARS-CoV-2 NAA Rapid Test Not Detected (NotDetected)
[2023-03-09 00:54] VITALS: BMI 37.8
[2023-03-09 01:03] LABS: Troponin I 0.013 ng/mL (< 0.028)
[2023-03-09] MEDS ORDERED: Ondansetron PF 4 MG/2 ML Vial IVP PRN (01:05)
[2023-03-09] MEDS ORDERED: Glucagon 1 MG/ML KIT IM PRN (01:05)
[2023-03-09] MEDS ORDERED: HumaLOG 300 UNITS/3 ML VIAL SC PRN ×2 (01:05)
[2023-03-09] MEDS ORDERED: Acetaminophen 325 MG TAB PO PRN (01:05)
[2023-03-09] MEDS ORDERED: Dextrose 50% Abboject 50 ML SYRINGE SLOW IVP PRN (01:05)
[2023-03-09] MEDS ORDERED: Dextrose 5% in Water 1,000 ML IV PRN (01:05)
[2023-03-09] MEDS ORDERED: Nitroglycerin 0.4 MG TAB (25 Tab Bottle) SL PRN (01:05)
[2023-03-09] MEDS ORDERED: Ondansetron ODT 4 MG TAB PO PRN (01:05)
[2023-03-09] MEDS ORDERED: hydrOXYzine 25 MG TAB PO PRN (01:10)
[2023-03-09] MEDS ORDERED: tiZANidine HCl 4 MG TAB PO SCH (01:15)
[2023-03-09] MEDS ORDERED: Phenytoin Extended Release 100 MG CAP PO SCH ×3 (01:15→21:00)
[2023-03-09] MEDS ORDERED: Apixaban 5 MG TAB PO SCH (01:30)
[2023-03-09 05:09] LABS: #Eosinphils 0.4 thou/uL (0.0-0.7); #Monocytes 0.5 thou/uL (0.11-0.59); #Neutrophils 1.9 thou/uL (1.40-6.50); %Basophils 0.6 % (0.0-1.0); %Eosinophils 7.8 % (0.0-10.0); %Monocytes 9.7 % (0.0-10.0); %Neutrophils 39.9 % (42.0-75.0); Hemoglobin 11.4 g/dL (14.0-18.0); Mean Corpuscular Hemoglobin 32.3 pg (27.0-31.0); Mean Corpuscular Volume 94.9 fl (78.0-98.0); Mean Platelet Volume 9.6 fL (7.4-10.4); Platelet Count 175 10x3/uL (130-400); RBC Distribution Width 13.4 % (11.5-14.5); Red Blood Cell (RBC) Count 3.53 mill/uL (4.70-6.10); White Blood Cell (WBC) Count 4.6 10x3/uL (4.8-10.8)
[2023-03-09 05:49] LABS: Troponin I Less than 0.010 ng/mL (< 0.028)
[2023-03-09 06:04] LABS: Anion Gap 12 mmol/L (10-20); BUN (Urea Nitrogen) 22 mg/dL (8.4-25.7); Calc. Creatinine Clearance 124 mL/min (70-130); Calcium 8.8 mg/dL (7.8-10.44); Carbon Dioxide 25 mmol/L (23-31); Cardiac Risk 3.9 (Less than 4.5); Chloride 109 mmol/L (98-107); Cholesterol 114 mg/dl (< 200 Desired); Estimated GFR 76; Glucose 100 mg/dL (80-115); HDL Cholesterol 29 mg/dL (>60 Neg Risk); LDL Cholesterol, Calculated 64 mg/dL; Potassium 4.1 mmol/L (3.5-5.1); Sodium 142 mmol/L (136-145); Triglycerides 106 mg/dL (Less than 150)
[2023-03-09] MEDS ORDERED: Aspirin Chewable 81 MG TAB PO SCH (09:00)
[2023-03-09] MEDS ORDERED: Non-Formulary Item 1 EACH (Apixaban [Eliquis] 5 MG Tab.Ds.Pk) PO SCH (09:00)
[2023-03-09] MEDS ORDERED: Regadenoson 0.4 MG/5 ML SYRINGE ONE (09:41)
[2023-03-09] MEDS: Atorvastatin Calcium 20 MG TAB PO SCH (10:41)
[2023-03-09] MEDS: Lisinopril 10 MG TAB PO SCH (10:42)
[2023-03-09] MEDS: Apixaban 5 MG TAB PO SCH ×2 (10:42→19:58)
[2023-03-09] MEDS: Clopidogrel Bisulfate 75 MG TAB PO SCH (10:43)
[2023-03-09] MEDS: Phenytoin Extended Release 100 MG CAP PO SCH (10:44)
[2023-03-09] MEDS: Hydrochlorothiazide 25 MG TAB PO SCH (10:45)
[2023-03-09] MEDS: Amlodipine 5 MG TAB PO SCH (10:45)
[2023-03-09] MEDS: Loratadine 10 MG TAB PO SCH (10:47)
[2023-03-09] MEDS: metFORMIN 500 MG TAB PO SCH (14:42)
[2023-03-09] MEDS ORDERED: Lidocaine 4% Patch TD SCH (16:00)
[2023-03-09 21:57] LABS: Troponin I Less than 0.010 ng/mL (< 0.028)
[2023-03-10] MEDS ORDERED: LIDOCAINE Patch Removal TOP SCH (04:00)
[2023-03-10 05:34] LABS: #Eosinphils 0.3 thou/uL (0.0-0.7); #Monocytes 0.5 thou/uL (0.11-0.59); #Neutrophils 2.3 thou/uL (1.40-6.50); %Basophils 0.4 % (0.0-1.0); %Eosinophils 5.7 % (0.0-10.0); %Lymphocytes 37.6 % (21.0-51.0); %Monocytes 10.3 % (0.0-10.0); %Neutrophils 45.8 % (42.0-75.0); Hemoglobin 11.9 g/dL (14.0-18.0); Mean Corpuscular HGB CONC 34.4 g/dL (32.0-36.0); Mean Corpuscular Hemoglobin 32.3 pg (27.0-31.0); Mean Platelet Volume 9.5 fL (7.4-10.4); Platelet Count 182 10x3/uL (130-400); RBC Distribution Width 13.1 % (11.5-14.5); Red Blood Cell (RBC) Count 3.68 mill/uL (4.70-6.10); White Blood Cell (WBC) Count 5.1 10x3/uL (4.8-10.8)
[2023-03-10 05:54] LABS: Anion Gap 11 mmol/L (10-20); BUN (Urea Nitrogen) 17 mg/dL (8.4-25.7); Calc. Creatinine Clearance 126 mL/min (70-130); Carbon Dioxide 27 mmol/L (23-31); Chloride 105 mmol/L (98-107); Estimated GFR 78; Glucose 112 mg/dL (80-115); Potassium 4.1 mmol/L (3.5-5.1); Sodium 139 mmol/L (136-145)
[2023-03-10] MEDS: Amlodipine 5 MG TAB PO SCH (09:57)
[2023-03-10] MEDS: Phenytoin Extended Release 100 MG CAP PO SCH (09:58)
[2023-03-10] MEDS: metFORMIN 500 MG TAB PO SCH (09:59)
[2023-03-10] MEDS: Atorvastatin Calcium 20 MG TAB PO SCH (10:00)
[2023-03-10] MEDS: Apixaban 5 MG TAB PO SCH (10:00)
[2023-03-10] MEDS: Lisinopril 10 MG TAB PO SCH (10:01)
[2023-03-10] MEDS: Clopidogrel Bisulfate 75 MG TAB PO SCH (10:02)
[2023-03-10] MEDS: Loratadine 10 MG TAB PO SCH (10:05)
[2023-03-10] MEDS ORDERED: Loratadine 10 MG TAB PO SCH (10:15)
[2023-03-10 12:53] VITALS: TEMP 99.1
[2023-03-10 17:55] VITALS: BP 133/86
[2023-03-10] MEDS ORDERED: Apixaban 5 MG TAB PO SCH (21:00)
[2023-03-11] MEDS ORDERED: Loratadine 10 MG TAB PO SCH (09:00)
== END 2023-03-10 18:37 | disposition home or self-care (01) ==
LOC: ERS 20:11 → 2NO 23:53
PROVIDERS: ADMIT Student in an Organized Health Care Education/Training Program; ATTEND Internal Medicine
DX: R07.9 Chest pain, unspecified (principal); I82.409 Acute embolism and thrombosis of unspecified deep veins of unspecified lower extremity; I11.0 Hypertensive heart disease with heart failure; I50.20 Unspecified systolic (congestive) heart failure; E78.5 Hyperlipidemia, unspecified; E11.9 Type 2 diabetes mellitus without complications; G40.909 Epilepsy, unspecified, not intractable, without status epilepticus; Z79.899 Other long term (current) drug therapy; Z79.02 Long term (current) use of antithrombotics/antiplatelets; Z79.01 Long term (current) use of anticoagulants; Z79.84 Long term (current) use of oral hypoglycemic drugs; Z20.828 Contact with and (suspected) exposure to other viral communicable diseases; Z88.6 Allergy status to analgesic agent
CPT/HCPCS: 36415; 36416; 71045; 71275; 78452; 80048; 80053; 80061; 83690; 83880; 84484; 85025; 93005; 93010; 93017; 94760; 96374; A9500; G0378; J2270; J2785

== ENCOUNTER 2023-06-27 14:49 | Emergency (ER) | payer OTHER ==
[2023-06-27 15:51] LABS: #Eosinphils 0.4 thou/uL (0.0-0.7); #Monocytes 0.5 thou/uL (0.11-0.59); #Neutrophils 2.9 thou/uL (1.40-6.50); %Basophils 0.6 % (0.0-1.0); %Eosinophils 6.8 % (0.0-10.0); %Lymphocytes 27.9 % (21.0-51.0); %Monocytes 9.4 % (0.0-10.0); %Neutrophils 55.1 % (42.0-75.0); Hematocrit 36.7 % (42.0-52.0); Hemoglobin 12.8 g/dL (14.0-18.0); Mean Corpuscular HGB CONC 34.9 g/dL (32.0-36.0); Mean Corpuscular Hemoglobin 32.9 pg (27.0-31.0); Mean Corpuscular Volume 94.3 fl (78.0-98.0); Mean Platelet Volume 9.7 fL (7.4-10.4); Platelet Count 195 10x3/uL (130-400); RBC Distribution Width 13.2 % (11.5-14.5); Red Blood Cell (RBC) Count 3.89 mill/uL (4.70-6.10); White Blood Cell (WBC) Count 5.3 10x3/uL (4.8-10.8)
[2023-06-27 16:20] LABS: ALT (SGPT) 20 U/L (8-55); AST (SGOT) 22 U/L (5-34); Albumin 4.4 g/dL (3.4-4.8); Alkaline Phosphatase 88 U/L (40-110); Anion Gap 14 mmol/L (10-20); BUN (Urea Nitrogen) 20 mg/dL (8.4-25.7); Bilirubin, Total 0.2 mg/dL (0.2-1.2); Calc. Creatinine Clearance 0 mL/min (70-130); Calcium 9.1 mg/dL (7.8-10.44); Carbon Dioxide 24 mmol/L (23-31); Chloride 106 mmol/L (98-107); Estimated GFR 70; Globulin 3.1 g/dL (2.4-3.5); Glucose 94 mg/dL (80-115); Lipase 49 U/L (8-78); Potassium 4.4 mmol/L (3.5-5.1); Protein, Total 7.5 g/dL (5.8-8.1); Sodium 140 mmol/L (136-145)
[2023-06-27 16:24] LABS: Troponin I Less than 0.010 ng/mL (< 0.028)
[2023-06-27 18:39] LABS: Troponin I Less than 0.010 ng/mL (< 0.028)
== END 2023-06-27 18:58 | disposition home or self-care (01) ==
LOC: ERS 14:49
DX: R07.2 Precordial pain (principal); F43.0 Acute stress reaction; I25.2 Old myocardial infarction; I10 Essential (primary) hypertension; E11.9 Type 2 diabetes mellitus without complications; E78.5 Hyperlipidemia, unspecified; G40.409 Other generalized epilepsy and epileptic syndromes, not intractable, without status epilepticus; Z79.01 Long term (current) use of anticoagulants; Z79.84 Long term (current) use of oral hypoglycemic drugs; Z79.899 Other long term (current) drug therapy
CPT/HCPCS: 36415; 71045; 80053; 83690; 84484; 85025; 93005

== ENCOUNTER 2023-06-29 14:53 | Emergency (ER) | payer OTHER, SELFPAY | END 2023-06-29 16:42 | disposition home or self-care (01) | LOC: ERS 14:53 | DX: I82.502 Chronic embolism and thrombosis of unspecified deep veins of left lower extremity (principal); E11.9 Type 2 diabetes mellitus without complications; I10 Essential (primary) hypertension; E78.5 Hyperlipidemia, unspecified; Z79.84 Long term (current) use of oral hypoglycemic drugs; Z79.01 Long term (current) use of anticoagulants | CPT/HCPCS: 99283 ==